=== PATIENT | male | born 1990 ===

== ENCOUNTER 2017-11-29 16:18 | Emergency (ER) | payer OTHER ==
[2017-11-29] MEDS ORDERED: Naproxen 550 mg Tab PO STA (18:10)
[2017-11-29] MEDS ORDERED: Naproxen 550 mg Tab PO ONE (18:23)
[2017-11-29 18:29] VITALS: BP 114/72; PULSE 61; RESP 18; TEMP 98.8
[2017-11-29 18:32] VITALS: O2SAT 98
--- NOTE | 2017-11-29 18:32 | C.PDOC ---
History Of Present Illness 27 y/o male presents to the ED for dental pain that radiates to his head. Pt notes he has had h/o similar pain and was told he needs the tooth fixed but has not followed up with dentist due to insurance issues. Patient took Tylenol yesterday, has not taken anything today. Patient denies fever, chills, difficulty, breathing or swallowing, discharge, or neck pain. Time Seen by Provider: 11/29/17 17:25 Chief Complaint (Nursing): Headache History Per: Patient History/Exam Limitations: no limitations Current Symptoms Are (Timing): Still Present Quality: "Pain" Additional History Per: Patient Past Medical History Reviewed: Historical Data, Nursing Documentation, Vital Signs Vital Signs: Last Vital Signs Temp 98.8 F 11/29/17 18:29 Pulse 61 11/29/17 18:29 Resp 18 11/29/17 18:29 BP 114/72 11/29/17 18:29 Pulse Ox 98 11/29/17 21:00 - Medical History PMH: No Chronic Diseases Surgical History: No Surg Hx Family History: States: Unknown Family Hx - Social History Hx Alcohol Use: No Hx Substance Use: No - Immunization History Hx Tetanus Toxoid Vaccination: No Hx Influenza Vaccination: No Hx Pneumococcal Vaccination: No Review Of Systems Constitutional: Negative for: Fever, Chills ENT: Positive for: Mouth Pain (left-sided, dental ) Neurological: Positive for: Headache Physical Exam - Physical Exam Appears: Non-toxic, No Acute Distress Skin: Normal Color, Warm, Dry Head: Atraumatic, Normacephalic, No Tenderness Eye(s): bilateral: Normal Inspection, PERRL, EOMI Ear(s): Bilateral: Normal Nose: Normal Oral Mucosa: Moist Tongue: No Swelling Teeth: Other (R maxillary canine tenderness with clara) Gingiva: No Swelling, No Tender, No Abscess Throat: Normal, No Erythema, No Exudate, No Drooling Neck: Normal ROM, Supple Lymphatic: Normal Exam Chest: Symmetrical Cardiovascular: Rhythm Regular Respiratory: Normal Breath Sounds, No Accessory Muscle Use Extremity: Normal ROM Neurological/Psych: Oriented x3, Normal Speech, Normal Cognition ED Course And Treatment O2 Sat by Pulse Oximetry: 98 (on RA) Pulse Ox Interpretation: Normal Progress Note: Amoxicillin PO adn Naproxen PO administered. Patient is resting comfortably, and is in no acute distress. Patient was instructed to follow up with dentist in 1-2 days for further evaluation. Disposition - Disposition Disposition: HOME/ ROUTINE Disposition Time: 18:29 Condition: STABLE Additional Instructions: Follow up with dentist in 1-2 days. Return to ER if symptoms persist or worsen. Prescriptions: Amoxicillin 875 mg PO BID #14 tablet Ibuprofen [Motrin] 600 mg PO Q6 PRN #20 tab PRN Reason: Pain, Mild (1-3) Instructions: Dental Pain (DC) Forms: [email or web address] (Malay), Work Excuse - Clinical Impression Clinical Impression: Pain, dental - PA / [employer] / Resident Statement MD/DO has reviewed & agrees with the documentation as recorded. - Scribe Statement The provider has reviewed the documentation as recorded by the Scribe (Gabriela Valenzuela) All medical record entries made by the Scribe were at my direction and personally dictated by me. I have reviewed the chart and agree that the record accurately reflects my personal performance of the history, physical exam, medical decision making, and the department course for this patient. I have also personally directed, reviewed, and agree with the discharge instructions and disposition.
== END 2017-11-29 18:49 | disposition home or self-care (01) ==
LOC: C.ER 16:18
DX: K08.89 Other specified disorders of teeth and supporting structures (principal); F17.210 Nicotine dependence, cigarettes, uncomplicated

== ENCOUNTER 2017-12-01 14:12 | Emergency (ER) | payer OTHER ==
[2017-12-01 14:20] VITALS: BMI 24.2
--- NOTE | 2017-12-01 14:54 | C.PDOC ---
History Of Present Illness 27-year-old male, presents to the emergency department with complaints of pain to left canine. Pain radiates to his head. Pt notes he has a h/o similar pain and was told he needs the tooth fixed but has not followed up with dentist due to insurance issues. Patient is taking Tylenol at home with minimal relief. He has not taken anything today. Patient denies fever, chills, difficulty, breathing or swallowing, discharge, or neck pain. Time Seen by Provider: 12/01/17 14:24 Chief Complaint (Nursing): Dental Pain History Per: Patient History/Exam Limitations: no limitations Onset/Duration Of Symptoms: Days Current Symptoms Are (Timing): Still Present Past Medical History Reviewed: Historical Data, Nursing Documentation, Vital Signs Vital Signs: Last Vital Signs Temp 97.9 F 12/01/17 15:08 Pulse 67 12/01/17 15:08 Resp 18 12/01/17 15:08 BP 95/60 L 12/01/17 15:08 Pulse Ox 98 12/01/17 18:25 Family History: States: No Known Family Hx - Social History Hx Alcohol Use: No Hx Substance Use: No - Immunization History Hx Tetanus Toxoid Vaccination: No Hx Influenza Vaccination: No Hx Pneumococcal Vaccination: No Review Of Systems Constitutional: Negative for: Fever, Chills ENT: Positive for: Other (pain to r maxillary canine). Negative for: Ear Pain, Nose Congestion, Throat Pain Skin: Negative for: Rash Neurological: Positive for: Headache. Negative for: Weakness, Numbness, Dizziness Physical Exam - Physical Exam Appears: Non-toxic, No Acute Distress Skin: Normal Color, Warm, Dry, No Rash Head: Atraumatic, Normacephalic Eye(s): bilateral: PERRL Nose: Normal Oral Mucosa: Moist Lips: Normal Appearing Teeth: Caries, Tender To Palpation, Other (R maxillary canine tenderness with clara to superior aspect) Neck: Normal ROM Chest: Symmetrical Extremity: Normal ROM, No Deformity, No Swelling Neurological/Psych: Oriented x3, Normal Speech ED Course And Treatment O2 Sat by Pulse Oximetry: 98 (RA) Pulse Ox Interpretation: Normal Disposition Counseled Patient/Family Regarding: Diagnosis, Need For Followup, Rx Given - Disposition Referrals: [facility] [Outside] Disposition: HOME/ ROUTINE Disposition Time: 15:00 Condition: STABLE Additional Instructions: FOLLOW UP WITH DENTIST IN 1-2 DAYS USE MEDICATION NEEDED FOR PAIN, CONTINUE ANTIBIOITICS RETURN TO EMERGENCY ROOM IF SYMPTOMS WORSEN SEGUIMIENTO CON DENTISTA EN 1-2 OLMOS USE MEDICAMENTO SEGN SEA NECESARIO PARA DOLOR, CONTINE ANTIBITICOS REGRESE AL RAFAL DE EMERGENCIA SI LOS SNTOMAS EMPEORAN Prescriptions: Naproxen [Naprosyn] 1 tab PO BID PRN #25 tab PRN Reason: Pain Instructions: Dental Pain (DC) Forms: [employer] (Wolof), Work Excuse Print Language: YORUBA - Clinical Impression Clinical Impression: Dental caries, Pain, dental - Scribe Statement The provider has reviewed the documentation as recorded by the Scribe (Carlyle Graves) All medical record entries made by the Scribe were at my direction and personally dictated by me. I have reviewed the chart and agree that the record accurately reflects my personal performance of the history, physical exam, medical decision making, and the department course for this patient. I have also personally directed, reviewed, and agree with the discharge instructions and disposition.
[2017-12-01 15:09] VITALS: BP 95/60; PULSE 67; RESP 18; TEMP 97.9
[2017-12-01 18:26] VITALS: O2SAT 98
== END 2017-12-01 15:12 | disposition home or self-care (01) ==
LOC: C.ER 14:12
DX: K02.9 Dental caries, unspecified (principal)
CPT/HCPCS: 96372; 99285; J1885

== ENCOUNTER 2017-12-06 14:53 | Emergency (ER) | payer OTHER ==
[2017-12-06 14:53] VITALS: BMI 24.2
[2017-12-06 15:01] VITALS: BP 114/74; PULSE 60; TEMP 98.5; O2SAT 98
--- NOTE | 2017-12-06 15:34 | C.PDOC ---
History Of Present Illness 27 year old male presents to the ED for evaluation of pain to his left upper canine which has been intermittent for days. Patient has three prior visits to the ED for similar complaint. Patient has been taking Naproxen from his previous visit, with some relief. Patient states he has not followed up with his dentist; he was able to get insurance and plans to see the dentist later this week. Patient presents to the ED requesting a work note, because he missed work yesterday and today. He denies fever, chills. Time Seen by Provider: 12/06/17 15:07 Chief Complaint (Nursing): Dental Pain History Per: Patient History/Exam Limitations: no limitations Onset/Duration Of Symptoms: Days Current Symptoms Are (Timing): Still Present Quality: Positive for: "Pain" Additional History Per: Patient Past Medical History Reviewed: Historical Data, Nursing Documentation, Vital Signs Vital Signs: Last Vital Signs Temp 98.5 F 12/06/17 15:00 Pulse 60 12/06/17 15:00 Resp 20 12/06/17 15:42 BP 114/74 12/06/17 15:00 Pulse Ox 98 12/06/17 17:57 - Medical History PMH: No Chronic Diseases Surgical History: No Surg Hx Family History: States: Unknown Family Hx - Social History Hx Alcohol Use: No Hx Substance Use: No - Immunization History Hx Tetanus Toxoid Vaccination: No Hx Influenza Vaccination: No Hx Pneumococcal Vaccination: No Review Of Systems Constitutional: Negative for: Fever, Chills ENT: Positive for: Mouth Pain (left upper canine ) Physical Exam - Physical Exam Appears: Non-toxic, No Acute Distress Skin: Normal Color, Warm, Dry Head: Atraumatic, Normacephalic Eye(s): bilateral: Normal Inspection Oral Mucosa: Moist Teeth: Caries (left upper canine ), Tender To Palpation (left upper canine ) Gingiva: No Abscess Neck: Supple Extremity: Normal ROM Neurological/Psych: Oriented x3, Normal Speech, Normal Cognition ED Course And Treatment O2 Sat by Pulse Oximetry: 98 (on RA) Pulse Ox Interpretation: Normal Disposition Counseled Patient/Family Regarding: Diagnosis, Need For Followup - Disposition Referrals: [facility] [Outside] [facility] [Outside] Disposition: HOME/ ROUTINE Disposition Time: 15:35 Condition: STABLE Instructions: Tooth Decay, Adult (DC), Dental Pain (DC) Forms: [employer] (Greek), Work Excuse Print Language: BENGALI - POA Present On Arrival: None - Clinical Impression Clinical Impression: Dental caries, Pain, dental - Scribe Statement The provider has reviewed the documentation as recorded by the Scribe (Gabriela Valenzuela) Provider Attestation: All medical record entries made by the Scribe were at my direction and personally dictated by me. I have reviewed the chart and agree that the record accurately reflects my personal performance of the history, physical exam, medical decision making, and the department course for this patient. I have also personally directed, reviewed, and agree with the discharge instructions and disposition.
[2017-12-06 15:43] VITALS: RESP 20
== END 2017-12-06 15:42 | disposition home or self-care (01) ==
LOC: C.ER 14:53
DX: K02.9 Dental caries, unspecified (principal)

== ENCOUNTER 2017-12-08 15:27 | Emergency (ER) | payer OTHER ==
[2017-12-08 15:27] VITALS: BMI 24.2
[2017-12-08 15:49] VITALS: BP 106/68; PULSE 70; RESP 18; TEMP 98.5; O2SAT 99
--- NOTE | 2017-12-08 17:50 | C.PDOC ---
History Of Present Illness 27 year-old male presents to the ED complaining of pain to the left upper jaw, ongoing for over a week. This is his 4th ED visit within the past 1.5 weeks for the same complaint. Patient has not followed up with a dentist since prior visit. He denies fever, trauma to area, or foul taste in mouth. Time Seen by Provider: 12/08/17 15:45 Chief Complaint (Nursing): Headache History Per: Patient History/Exam Limitations: no limitations Onset/Duration Of Symptoms: Days Current Symptoms Are (Timing): Still Present Past Medical History Reviewed: Historical Data, Nursing Documentation, Vital Signs Vital Signs: Last Vital Signs Temp 98.5 F 12/08/17 15:40 Pulse 70 12/08/17 15:40 Resp 18 12/08/17 15:40 BP 106/68 12/08/17 15:40 Pulse Ox 99 12/08/17 17:53 Family History: States: Unknown Family Hx - Social History Hx Tobacco Use: Yes Hx Alcohol Use: No Hx Substance Use: No - Immunization History Hx Tetanus Toxoid Vaccination: No Hx Influenza Vaccination: No Hx Pneumococcal Vaccination: No Review Of Systems Except As Marked, All Systems Reviewed And Found Negative. Constitutional: Negative for: Fever, Chills ENT: Positive for: Mouth Pain (left upper dental pain). Negative for: Ear Pain , Other (foul taste) Cardiovascular: Negative for: Chest Pain Respiratory: Negative for: Shortness of Breath Physical Exam - Physical Exam Appears: Non-toxic, No Acute Distress Skin: Normal Color, Warm, Dry Head: Atraumatic, Normacephalic Eye(s): bilateral: Normal Inspection, PERRL, EOMI Nose: Normal Oral Mucosa: Moist Teeth: Caries (Multiple caries to left upper maxillary area) Gingiva: Normal Appearing, No Swelling, No Bleeding, No Abscess Lymphatic: No Adenopathy Chest: Symmetrical Respiratory: No Accessory Muscle Use Extremity: Bilateral: Atraumatic, Normal Color And Temperature, Normal ROM Neurological/Psych: Oriented x3, Normal Speech ED Course And Treatment O2 Sat by Pulse Oximetry: 99 (RA) Pulse Ox Interpretation: Normal Medical Decision Making Medical Decision Making: Counseled patient regarding diagnosis and the need to follow up with a dentist. Stable for d/c home. Provided with rx for Motrin, to take as needed for pain. Disposition Counseled Patient/Family Regarding: Diagnosis, Need For Followup - Disposition Disposition: HOME/ ROUTINE Disposition Time: 15:55 Condition: GOOD Additional Instructions: MELL SHEARER, thank you for letting us take care of you today. Your provider was Sabino Olivier DO. The emergency medical care you received today was directed at your acute symptoms. If you were prescribed any medication , please fill it and take as directed. It may take several days for your symptoms to resolve. Return to the Emergency Department if your symptoms worsen , do not improve, or if you have any other problems. Please contact your doctor or call one of the physicians/clinics you have been referred to that are listed on the Patient Visit Information form that is included in your discharge packet. Bring any paperwork you were given at discharge with you along with any medications you are taking to your follow up visit. Our treatment cannot replace ongoing medical care by a primary care provider outside of the emergency department. Thank you for allowing the [facility] [employer] team to be part of your care today. FOLLOW UP WITH A DENTIST IN 1-2 DAYS. YOU CAN USE THE LIST GIVEN TO YOU. Prescriptions: Ibuprofen [Motrin] 600 mg PO Q6 PRN #20 tab PRN Reason: Pain, Moderate (4-7) Instructions: Tooth Decay, Adult (DC) Forms: [employer] (Icelandic), Work Excuse - POA Present On Arrival: None - Clinical Impression Clinical Impression: Dental caries - Scribe Statement The provider has reviewed the documentation as recorded by the Scribe (Leyla Rodas) Provider Attestation: All medical record entries made by the Scribe were at my direction and personally dictated by me. I have reviewed the chart and agree that the record accurately reflects my personal performance of the history, physical exam, medical decision making, and the department course for this patient. I have also personally directed, reviewed, and agree with the discharge instructions and disposition.
== END 2017-12-08 16:00 | disposition home or self-care (01) ==
LOC: C.ER 15:27
DX: K02.9 Dental caries, unspecified (principal)